=== PATIENT | female | born 1970 | race Caucasian/White ===

== ENCOUNTER 2017-07-24 23:55 | Emergency (ER) | payer BC ==
--- NOTE | 2017-07-25 00:59 | PDOC ---
History of Present Illness - General Stated Complaint: RT ANKLE INJURY Time Seen by Provider: 07/25/17 00:58 History Source: Patient Exam Limitations: No Limitations - History of Present Illness Initial Comments: 07/25/17 01:06 Ms Smalls is a 47 yo F who is otherwise healthy She presents to the ER with family member due to Right Ankle pain Pt state she was chasing after her granddaughter and slipped at approximately 6 pm She inverted her ankle in the process Since falling, she has been unable to ambulate independently due to pain No head trauma No LOC No amnesia Pain is rated 8/10 Predominantly in the lateral malleolus No pain in the foot No radiation of pain Pt did not take motrin 07/25/17 01:08 GENERAL/CONSTITUTIONAL: No: fever, chills, weakness, loss of appetite. CARDIOVASCULAR: No: chest pain, lightheadedness, palpitations, syncope RESPIRATORY: No: cough, shortness of breath GASTROINTESTINAL: No: nausea, vomiting, diarrhea, abdominal pain MUSCULOSKELETAL:Yes: right ankle pain No: back pain, neck pain, SKIN : No: bruising, rash NEUROLOGIC: No: headache, vertigo Physical Exam: GENERAL: The patient is in no acute distress. HEAD: Normal with no signs of trauma. EYES: PERRLA, EOMI, sclera anicteric, conjunctiva clear. ENT: Ears normal, nares patent, oropharynx clear without exudates. Moist mucous membranes. NECK: Normal range of motion, supple without midline tenderness to palpation LUNGS: Breath sounds equal, clear to auscultation bilaterally. No wheezes, and no crackles. HEART:Regular rate and rhythm, normal S1 and S2 without murmur, rub or gallop. ABDOMEN: Soft, nontender, normoactive bowel sounds. No guarding, no rebound. EXTREMITIES: Normal range of motion, no edema. NEUROLOGICAL: Cranial nerves II through XII grossly intact. Normal speech. No focal neurological deficits. MUSCULOSKELETAL: (+) lateral malleolus tenderness to palpation, (+) swelling. No medial malleolus tenderness No tenderness of the metatarsals 2+ DP, PT Sensation in tact SKIN: Warm, Dry, normal turgor, no rashes or lesions noted. Past History - Past Medical History Allergies/Adverse Reactions: Allergies Allergy/AdvReac Type Severity Reaction Status Date / Time No Known Allergies Allergy Verified 07/25/17 01:02 Home Medications: Ambulatory Orders Cyclobenzaprine HCl [Flexeril] 10 mg PO Q8H #14 tablet 01/17/12 - Suicide/Smoking/Psychosocial Hx Smoking Status: No Smoking History: Never smoked Number of Cigarettes Smoked Daily: 0 Drug/Substance Use Hx: No Substance Use Type: None Medical Decision Making - Medical Decision Making 07/25/17 02:02 47 yo F s/p mechanical fall tenderness of the lateral malleolus suggestive of either ankle sprain vs. fibula fracture Will do: Xray Motrin for pain 07/25/17 02:44 Posterior slab applied Neurovascularly intact after splint applied Crutches will discharge to home Distal fibula fracture *DC/Admit/Observation/Transfer Diagnosis at time of Disposition: Fracture of distal fibula Qualifiers: Encounter type: initial encounter Fracture type: closed Fracture morphology: other fracture Laterality: right Qualified Code(s): S82.831A - Other fracture of upper and lower end of right fibula, initial encounter for closed fracture - Discharge Dispostion Disposition: HOME Condition at time of disposition: Stable Decision to Admit order: No - Referrals Referrals: Jose Luis Gay MD [Staff Physician] - Gregg Ha MD [Staff Physician] - - Patient Instructions Printed Discharge Instructions: DI for Ankle Fracture Additional Instructions: Ms Carverrry Thank you for coming in to the ER You can remove splint if your foot is more painful, swollen, if your toes are cold or blue OR you have numbness in your foot Please follow up with orthopedics within 2-3 days You can switch to air cast which will likely be more comfortable Please use crutches for now Please take motrin for pain Print Language: PARAGUAYAN - Post Discharge Activity Forms/Work/School Notes: Back to Work
[2017-07-25 01:06] VITALS: BP 116/68; PULSE 71; TEMP 97.1; BMI 18.8
[2017-07-25] MEDS ORDERED: IBUPROFEN 600 MG TABLET (FP) PO ONE ×2 (01:07→01:12)
== END 2017-07-25 02:59 | disposition home or self-care (01) ==
LOC: JER 23:55
PROC: 2W3QX1Z Immobilization of Right Lower Leg using Splint (ICD-10-PCS; principal; 2017-07-24)
DX: S82.831A Other fracture of upper and lower end of right fibula, initial encounter for closed fracture (principal); W18.39XA Other fall on same level, initial encounter; Y93.02 Activity, running; Y92.89 Other specified places as the place of occurrence of the external cause; Y99.8 Other external cause status
CPT/HCPCS: 73610-TC-RT-FY; 73630-TC-RT-FY; 99283-25

== ENCOUNTER 2021-03-28 22:20 | Emergency (ER) | payer BC ==
[2021-03-28 22:31] VITALS: BP 122/74; PULSE 66; TEMP 98; BMI 21.4
[2021-03-28] MEDS ORDERED: SODIUM CHLORIDE 1,000 ML IV STA (23:42)
[2021-03-28] MEDS ORDERED: ACETAMINOPHEN 1000 MG/100 ML BAG IVPB ONE (23:42)
[2021-03-28 23:58] LABS: BASO % 0.7 % (0-2.0); EOS % 1.7 % (0-4.5); HEMATOCRIT 36.5 % (32.4-45.2); HEMOGLOBIN 12.4 GM/dL (10.7-15.3); LYMPH % 31.9 % (8-40); MCH 30.4 pg (25.7-33.7); MEAN CELL VOLUME 89.4 fl (80-96); MEAN PLT VOLUME 8.4 fl (7.5-11.1); MONO % 6.4 % (3.8-10.2); NEUT % 59.3 % (42.8-82.8); PLATELET COUNT 228 10^3/uL (134-434); RBC 4.08 M/mm3 (3.60-5.2); RDW 12.2 % (11.6-15.6); WHITE BLOOD COUNT 5.2 K/mm3 (4.0-10.0)
[2021-03-29 00:03] LABS: CALCIUM 8.6 mg/dL (8.5-10.1)
[2021-03-29] MEDS ORDERED: ACETAMINOPHEN INJECTION 100 ML IVPB ONE (00:03)
[2021-03-29 00:04] LABS: ALBUMIN 3.5 g/dl (3.4-5.0)
[2021-03-29 00:07] LABS: CREATININE 0.8 mg/dL (0.55-1.3)
[2021-03-29 00:08] LABS: BILIRUBIN,TOTAL 0.7 mg/dL (0.2-1)
== END 2021-03-29 02:30 | disposition home or self-care (01) ==
LOC: JER 22:20
PROC: 3E033GC Introduction of Other Therapeutic Substance into Peripheral Vein, Percutaneous Approach (ICD-10-PCS; principal; 2021-03-28)
DX: R07.9 Chest pain, unspecified (principal)
CPT/HCPCS: 36415; 71046-TC-FY; 80053; 84484; 85025; 93005; 93010; 99285-25